=== PATIENT | male | born 1950 | race Caucasian/White ===

== ENCOUNTER 2022-08-05 11:56 | Day surgery (SDC) | payer MEDICARE ==
[2022-08-01 09:35] LABS: BASOPHILS % (AUTO) 0.5 % (0-1); EOSINOPHILS # (AUTO) 0.3 X10'3 (0-0.9); HEMATOCRIT 49.3 % (42.0-52.0); HEMOGLOBIN 16.2 g/dl (14.0-17.9); LYMPHOCYTES # (AUTO) 2.1 X10'3 (1.1-4.8); LYMPHOCYTES % (AUTO) 24.4 % (21-51); MEAN CORPUSCULAR HEMOGLOBIN 30.6 PG (27.0-31.0); MEAN CORPUSCULAR HGB CONC 32.8 g/dL (33.0-36.5); MEAN CORPUSCULAR VOLUME 93.5 FL (78-98); MEAN PLATELET VOLUME 8.5 FL (7.4-10.4); MONOCYTES # (AUTO) 0.8 X10'3 (0-0.9); NEUTROPHILS # (AUTO) 5.4 X10'3 (1.8-7.7); NEUTROPHILS % (AUTO) 63.1 % (42-75); PLATELET COUNT 199 X10'3 (140-440); RED BLOOD COUNT 5.27 X10'6 (4.70-6.10); RED CELL DISTRIBUTION WIDTH 14.2 % (11.5-14.5); WHITE BLOOD COUNT 8.6 X10'3 (4.5-11.0)
[2022-08-01 09:48] LABS: APTT 27 SECONDS (22-32)
[2022-08-01 09:50] LABS: ALBUMIN 3.8 G/DL (3.4-5.0); ANION GAP 10 (8-16); BLOOD UREA NITROGEN 21 MG/DL (7-18); BUN/CREATININE RATIO 16.5 (10.0-20.0); CALCIUM 10.1 MG/DL (8.5-10.1); CHLORIDE 105 MMOL/L (99-107); CHOL/HDL RATIO 3.3 (0.00-4.99); CHOLESTEROL 180 MG/DL (0-200); CREATININE 1.27 MG/DL (0.60-1.10); GLUCOSE 118 MG/DL (70-104); HDL CHOLESTEROL 55 MG/DL (35-60); LDL CHOLESTEROL 105 MG/DL (50-100); POTASSIUM 4.4 MMOL/L (3.5-5.1); SODIUM 140 MMOL/L (135-145); TOTAL CARBON DIOXIDE 24.8 MMOL/L (24-32); TRIGLYCERIDES 112 MG/DL (20-135); eGFR 56 ML/MIN
[2022-08-05] VITALS (7 sets, daily range): BP systolic 131–167; BP diastolic 57–86
[~2022-08-05] VITALS: Ht 190.5 cm; Wt 119.2 kg
[2022-08-05] MEDS ORDERED: LORazepam 0.5 MG tablet PO PRN (12:25)
[2022-08-05] MEDS ORDERED: diphenhydrAMINE 25mg capsule PO PRN (12:25)
[2022-08-05] MEDS ORDERED: normal saline 1,000 ML IV SCH (12:25)
[2022-08-05] MEDS ORDERED: LOSA100T58 PO (12:34)
[2022-08-05] MEDS ORDERED: ATOR-2 PO (12:34)
[2022-08-05] MEDS ORDERED: CHOL20002 PO (12:34)
[2022-08-05] MEDS ORDERED: METF-900 PO (12:34)
[2022-08-05] MEDS ORDERED: OMEG-5 PO (12:38)
[2022-08-05] MEDS ORDERED: MULT-1085 PO (12:38)
[2022-08-05] MEDS ORDERED: ASPI-280 PO (12:38)
[2022-08-05] MEDS ORDERED: nitroGLYCERIN-Tridil 50MG/D5W 250 ML IV ONE (14:27)
[2022-08-05] MEDS ORDERED: iohexol 350MG/ML 100ml bottle IV ONE ×2 (14:28→15:14)
[2022-08-05] MEDS ORDERED: heparin 1,000unit/ml 10ml vial 10 ML ONE (14:28)
[2022-08-05] MEDS ORDERED: verapamil 2.5 mg/ml inj IV ONE (14:28)
[2022-08-05] MEDS ORDERED: LIDOcaine 1% (10mg/ml) 2ml vial ONE (14:28)
[2022-08-05] MEDS ORDERED: fentaNYL/PF 50MCG/1 ML 2ML syringe ONE (14:28)
[2022-08-05] MEDS ORDERED: midazolam 1 mg/ML 2ml injection ONE (14:28)
[2022-08-05] MEDS ORDERED: HYDROcodone/acetaminophen 10/325mg tab PO PRN (16:05)
[2022-08-05] MEDS ORDERED: HYDROcodone/acetaminophen 5mg/325mg tablet PO PRN (16:05)
[2022-08-05] MEDS ORDERED: ACETYLCYSTEINE 200 MG/1 ML 4 ML ORAL SOLUTION PO SCH (20:00)
== END 2022-08-05 17:35 | disposition home or self-care (01) ==
LOC: SSTAY O 11:56
PROVIDERS: ATTEND Student in an Organized Health Care Education/Training Program
DX: R94.39 Abnormal result of other cardiovascular function study (principal); I25.10 Atherosclerotic heart disease of native coronary artery without angina pectoris; E11.9 Type 2 diabetes mellitus without complications; I10 Essential (primary) hypertension; E78.5 Hyperlipidemia, unspecified; Z79.82 Long term (current) use of aspirin; Z79.899 Other long term (current) drug therapy; Z79.84 Long term (current) use of oral hypoglycemic drugs; Z79.01 Long term (current) use of anticoagulants
CPT/HCPCS: 36415; 80048; 80061; 82948; 85025; 85610; 85730; 93005; 93458; 93571; 99152; 99153; A6258; C1751; J1644; J2250; J3010; J3490; J7030; Q0163; Q9967; A6402; C1769; C1894